=== PATIENT | female | born 1995 | race Caucasian/White ===

== ENCOUNTER 2016-09-18 19:50 | Emergency (ER) | payer BC, OTHER ==
[2016-09-18 20:04] VITALS: BP 130/67
[2016-09-18] MEDS ORDERED: Acetaminophen 325 MG Tab PO ONE (20:34)
--- NOTE | 2016-09-18 20:37 | EDM.PDOC ---
ED HPI Trauma - General Chief Complaint: Upper Extremity Injury/Pain Stated Complaint: LEFT ARM/NECK/SOME CHEST PAIN Time Seen by Provider: 09/18/16 20:15 Source: Reports: Patient History Limitations: Reports: No limitations - History of Present Illness INITIAL COMMENTS - FREE TEXT/NARRATIVE: Patient is a 21 year old female who presents to the E.D. complaining of pain to the left anterior shoulder. States the pain started after work while driving for unknown reason. She had also experienced a cramping sensation to the right lower chest and base of her neck with onset as well. These symptoms have resolved. She describes the pain to the left anterior shoulder as a ache/sharp sensation worsened with palpation. She rates the pain a 7/10 although she is smiling during examination and checking her phone intermittently. She states she has chronic neck discomfort. Patient works at [employer] and is on her feet for excessive hours. Denies any lifting or other activities contributing to pain. In addition she has chronic nausea associated with BCP. She also has history of MS and experiences intermittent dizziness. She denies any n/v, dizziness, lightheadedness, syncopal episode, abdominal pain, n/t, weakness, or any additional complaints. Occurred When: this evening Occurred Where: other (driving) Method of Injury: other (none stated) Severity: mild Pain/Injury Location: Reports: upper extremity, left (left anterior) Associated Symptoms: Reports: no other symptoms (Currently) Allergies/ADRs: Allergies No Known Allergies Allergy (Verified 09/18/16 20:04) Past Medical History - Past Health History Medical/Surgical History: Denies Medical/Surgical History HEENT History: Reports: Impaired vision Other HEENT History: wears glasses [employer] History: Reports: Polycystic Ovaries, Other OB/BYN History: Other Neuro History: being worked up for MS, MRI found lesions on the brain, undiagnosed with anything Social & Family History - Family History Cardiac: Reports: CA Endocrine/Metabolic: Reports: Diabetes, type II - Tobacco Use Smoking Status *Q: Never Smoker Second Hand Smoke Exposure: No - Caffeine Use Caffeine Use: Reports: Coffee, Soda - Alcohol Use Days Per Week of Alcohol Use: 3 Number of Drinks Per Day: 1 Total Drinks Per Week: 3 - Recreational Drug Use Recreational Drug Use: No Review of Systems - Review of Systems Review Of Systems: See Below (Currently) Constitutional: Reports: no symptoms Respiratory: Reports: no symptoms Cardiovascular: Reports: no symptoms GI/Abdominal: Reports: No symptoms Musculoskeletal: Reports: shoulder pain (left). Denies: neck pain, back pain Neurological: Denies: dizziness, headache, numbness, syncope, tingling, difficulty walking, weakness Trauma Exam - Physical Exam Exam: See Below Exam Limited By: No limitations General Appearance: Reports: alert, WD/WN, no apparent distress (Patient is smiling during examination intermittently looking at her phone) Head: Reports: atraumatic, normocephalic Eyes: bilateral eye: EOMI, PERRL Ears: Reports: hearing grossly normal Nose: Reports: normal inspection Throat/Mouth: Reports: Normal voice, No airway compromise Neck: Reports: non-tender, full range of motion, normal alignment, normal inspection Respiratory Exam: Reports: no respiratory distress, lungs clear, normal breath sounds, no accessory muscle use, chest non-tender Cardiovascular: Reports: normal peripheral pulses, regular rate, rhythm, no murmur Back: Reports: full range of motion, normal inspection, non-tender. Denies: muscle spasm, paraspinal tenderness, vertebral tenderness Extremities: Reports: no evidence of injury, normal range of motion, no pedal edema, tenderness (along the left bicepital groove with palpation. Increased pain to the same area when patient is asked to push herself off of the gurney. ) Neurologic: Reports: no motor/sensory deficits, alert, oriented x 3 Skin: Reports: Normal color, Warm/dry Course - Vital Signs Last Recorded V/S: Last Vital Signs Temp 98.6 F 09/18/16 20:01 Pulse 76 09/18/16 20:01 Resp 22 H 09/18/16 20:01 BP 130/67 09/18/16 20:01 Pulse Ox 99 09/18/16 20:01 - Orders/Labs/Meds Meds: Medications Discontinued Medications Generic Name Dose Route Start Last Admin Trade Name [place] PRN Reason Stop Dose Admin Acetaminophen 650 mg 09/18/16 20:34 09/18/16 20:49 Tylenol PO 09/18/16 20:35 650 mg NOW ONE Administration - Re-Assessments/Exams Free Text/Narrative Re-Assessment/Exam: Physical examination did not elicit any acute abnormalities that require testing. Pain is pinpoint along the bicipital groove with palpation. She has full range of motion. No swelling, deformity, or bruising present. She has no other complaints on examination. States pain is rated a 7/10 but the patient is smiling during the examination intermittently looking at her phone. She does not appear to be in acute distress. I have ordered Tylenol 650 mg PO. Patient agrees with current plan. Will discharge patient home with instructions for shoulder pain. 09/18/16 20:37 Departure - Departure Time of Disposition: 20:39 Disposition: Home, Self-Care 01 Condition: good Clinical Impression: Shoulder pain, left Qualifiers: Chronicity: acute Qualified Code(s): M25.512 - Pain in left shoulder Instructions: Shoulder Pain Referrals: Fawn Krause [facility] [Primary Care Provider] - Forms: ED Department Discharge Additional Instructions: Take ibuprofen 600 mg and Tylenol 650 mg every 6 hours as needed for pain. Refrain from any activities that cause worsening pain. Apply ice to affected area as needed. Followup with PCP as needed for further examination. Return to the E.D. if you develop any new or worsening symptoms.
== END 2016-09-18 20:54 | disposition home or self-care (01) ==
LOC: JD.ED 19:50
DX: M25.512 Pain in left shoulder (principal)
CPT/HCPCS: 99283; A9270-GY